=== PATIENT | female | born 1980 | race Asian ===

== ENCOUNTER → 2016-07-06 | Outpatient (CLI) | payer BC ==
[~2016-07-06] MED LIST: IBU800 M1 PO; MOTRIN 600600 MG/TAB PO; NORCO 325 MG-51 TAB PO; PERCOCET 325 MG1 TA2 PO; PRENATAL1 TA1 PO
== END ==
LOC: SUN.DIA 13:17
DX: O24.419 Gestational diabetes mellitus in pregnancy, unspecified control (principal); Z3A.33 33 weeks gestation of pregnancy
CPT/HCPCS: G0108

== ENCOUNTER 2016-09-08 01:49 | Inpatient (IN) | payer BC ==
[2016-09-08] VITALS (31 sets, daily range): BP systolic 100–1408; BP diastolic 60–87; PULSE 68–107; TEMP 97–98
[~2016-09-08] VITALS: Ht 154.9 cm; Wt 70.9 kg
[~2016-09-08 01:49] MED LIST changes: -IBU800 M1 PO
[2016-09-08 04:21] LABS: BASO % 0.1 % (0.0-2.0); EOS % 0.2 % (0-4.0); GRAN # 6.1 (1.4-6.5); HEMATOCRIT 39.5 % (37.0-47.0); HEMOGLOBIN 13.4 g/dl (12.5-16.0); LYMPH # 1.8 (1.2-3.4); LYMPH % 20.7 % (20.0-51.0); MEAN CELL VOLUME 90 fl (80.0-100.0); MEAN CORPUSCULAR HEMOGLOBIN 30 pg (27.0-31.0); MEAN CORPUSCULAR HGB CONC 34 g/dl (33.0-37.0); MONO # 0.7 (0.1-0.6); MONO % 7.5 % (1.7-9.3); PLATELET COUNT 187 K/mm3 (130-400); RED BLOOD COUNT 4.41 M/mm3 (4.10-5.30); REDCELL DISTRIBUTION WIDTH-CV 13.2 % (11.5-14.5); WHITE BLOOD COUNT 8.6 K/mm3 (4.8-10.8)
[2016-09-09] MEDS ORDERED: PERCOCET 325 MG1 TA2 PO (07:47)
[2016-09-09] MEDS ORDERED: IBU800 M1 PO (07:47)
[2016-09-09 08:30] VITALS: BP 107/73; PULSE 83; TEMP 97.5
== END 2016-09-09 12:05 | disposition home or self-care (01) | DRG 775 ==
LOC: LDRO 01:49 → OB 03:35 → LDR 03:35 → OB 11:25 → LDRO 11-16 15:14
PROVIDERS: Obstetrics & Gynecology
PROC: 10E0XZZ Delivery of Products of Conception, External Approach (ICD-10-PCS; principal; 2016-09-08)
DX: O48.0 Post-term pregnancy (principal); O09.523 Supervision of elderly multigravida, third trimester; O24.420 Gestational diabetes mellitus in childbirth, diet controlled; Z3A.40 40 weeks gestation of pregnancy; Z37.0 Single live birth
CPT/HCPCS: J1200; J2590; J2795; J7120

== ENCOUNTER 2019-04-22 07:09 | Inpatient (IN) | payer OTHER ==
[2019-04-22] VITALS (34 sets, daily range): BP systolic 109–172; BP diastolic 61–100; PULSE 63–120; TEMP 98–98.8
[~2019-04-22] VITALS: Ht 165.1 cm; Wt 75.5 kg
[~2019-04-22 07:09] MED LIST changes: +IBU800 M1 PO
--- NOTE | 2019-04-22 07:20 | NUR ---
Pt here for scheduled induction of labor. Pt to [facility], explained. at bedside, pt seems to understand some Sami but hsuband does translate for patient. IV started to left wrist x 1 attempt. Blood drawn from IV site and then LR infusing without difficulty. Consents signed and assessment complete. Pt with hx of GDM in past pregnancies and acid reflux. GBS negative. Fetus had been breech presentation until last week now vertex. Pt states baby is active and having irregular contractions. SVE: 2/50/-2. 0745:FHR reactive, pitocin started at 2mu per order. Inital BP 141/83 and repeat of 155/95. Pt states she is very nervous, will continue to monitor and will notify physician if BP continues to be elevated.
[2019-04-22 08:14] LABS: BASO % 0.1 % (0.0-2.0); EOS % 0.4 % (0-4.0); GRAN # 5.6 (1.4-6.5); GRAN % 69.5 % (42.2-75.2); HEMOGLOBIN 11.9 g/dl (12.5-16.0); LYMPH # 1.9 (1.2-3.4); LYMPH % 22.9 % (20.0-51.0); MEAN CELL VOLUME 85 fl (80.0-100.0); MEAN CORPUSCULAR HEMOGLOBIN 28 pg (27.0-31.0); MEAN CORPUSCULAR HGB CONC 33 g/dl (33.0-37.0); MEAN PLATELET VOLUME 11.2 fl (7.4-10.4); MONO # 0.5 (0.1-0.6); MONO % 6.7 % (1.7-9.3); PLATELET COUNT 213 K/mm3 (130-400); RED BLOOD COUNT 4.25 M/mm3 (4.10-5.30); REDCELL DISTRIBUTION WIDTH-CV 13.3 % (11.5-14.5)
[2019-04-22 08:15] LABS: HEMATOCRIT 36.2 % (37.0-47.0)
--- NOTE | 2019-04-22 10:15 | NUR ---
Dr Calixto here and at bedside. SVE: -/-2. AROM, clear fluid noted. Pericare done and pt repositioned. Requesting epidural, Sandy [employer] notified.
--- NOTE | 2019-04-22 11:10 | NUR ---
pt repositioned to sitting up on side of bed. Sandy SANCHES at bedside. Epidural placed, test dose at 1120. Pt tolerated well. See anesthesia notes and epidural placement. 1155: Pt comfortable with epidural. Frazier catheter placed. SVE: /-2. Pericare done and pt repositioned.
--- NOTE | 2019-04-22 12:50 | NUR ---
FHR monitor repositioned, intermittent tracing noted. SVE: /-1. Early decelerations noted. Dr. Calixto here and updated. 1345:SVE: Complete +1. Dr Calixto notified and pt prepped for delivery. Frazier catheter removed. 1353:Pt pushes through 2 contractions. 1356: of infants head and shoulders. 1st degree laceration repaired by physician. 1405:Spontaneous delivery of placenta. LR with pitocin infusing at 333ml/hr per protocol. Fundus firm, bleeding WNL. Pericare done and new pads and ice pack in place. 1415:Pt sitting up in bed .
--- NOTE | 2019-04-22 15:50 | NUR ---
Pt up and ambulates to bathroom with assist. Voids 400cc. Pericare done and new pads and underwear on. New gown in place. hemorrhoid noted, instructed to use ice and tucks pads. Pt to room 214 via wheelchair. Pt denies pain.
--- NOTE | 2019-04-22 17:30 | NUR ---
Pulse rate 120-130bpm. Vaginal bleeding WNL, fundus firm. Pt just up to bathroom, voids. 1805:Dr Hudson called to notify, see physician notification.
[2019-04-23 01:00] VITALS: BP 133/78; PULSE 84; TEMP 98.2
[2019-04-23 08:45] VITALS: BP 145/74; PULSE 100; TEMP 97.5
[2019-04-23 11:35] VITALS: BP 132/79; PULSE 100; TEMP 97.6
[2019-04-23 16:35] VITALS: BP 131/69; PULSE 89; TEMP 98.2
== END 2019-04-23 16:45 | disposition home or self-care (01) | DRG 807 ==
LOC: LDR 07:09 → OB 07:09 → LDR 09:38 → OB 15:00
PROVIDERS: ADMIT Student in an Organized Health Care Education/Training Program
PROC: 10E0XZZ Delivery of Products of Conception, External Approach (ICD-10-PCS; principal; 2019-04-22)
PROC: 0HQ9XZZ Repair Perineum Skin, External Approach (ICD-10-PCS; 2019-04-22)
PROC: 10907ZC Drainage of Amniotic Fluid, Therapeutic from Products of Conception, Via Natural or Artificial Opening (ICD-10-PCS; 2019-04-22)
PROC: 3E033VJ Introduction of Other Hormone into Peripheral Vein, Percutaneous Approach (ICD-10-PCS; 2019-04-22)
DX: O48.0 Post-term pregnancy (principal); Z37.0 Single live birth; O99.62 Diseases of the digestive system complicating childbirth; Z3A.40 40 weeks gestation of pregnancy; K21.9 Gastro-esophageal reflux disease without esophagitis; O70.0 First degree perineal laceration during delivery
CPT/HCPCS: J2590; J7120

== ENCOUNTER → 2019-11-14 | Outpatient (CLI) | payer OTHER | LOC: ZCOL.LAB 17:20 | DX: Z20.828 Contact with and (suspected) exposure to other viral communicable diseases (principal) ==